=== PATIENT | male | born 1965 | race Caucasian/White ===

== ENCOUNTER 2016-08-12 17:22 | Emergency (ER) | payer OTHER ==
[~2016-08-12 17:22] MED LIST: ACET500CAP PO; ADVIL PO; ASAB PO; ASABAYER PO; ATV1 PO; CELEXA40 MG PO; CHEMOTHERAPY IV; COMP10B PO; DEX4 PO; DSS PO; GOODY'S EX-STR1 EAC1 PO; KADIANSR30 PO; KLONO1 PO; LEVAQUIN750 MG PO; LORT7 PO; MOTRIN IB200 MG PO; MULTIPLE VIT PO; MULTIVIT/MIN PO; NICODERM C21 MG/241 TOP; NITROSTAT0.4 MG SL; NORCO1 TA1 PO; NORCO1 TAB; NORV5 PO; NTG150 SL; OXYCOD PO; OXYIR5 MG PO; P20 PO; PCET PO; PROAIR HFA INH; PROTONIX PO; QVAR 80 MCG80 MCG INH; SPIRIVA INH; T PO; TESSALON200 MG PO; TRENTAL400 PO; VITE PO; XANAX1 MG PO; ZOCOR20 PO; ZOFRAN4 PO; ZOFRAN8 PO; [UNRECOGNIZED DRUG - CODE] PO
[2016-08-12 17:37] LABS: BASOPHILS 0 %; EOSINOPHILS 0 %; ER CBC TAT 0 Hrs 03 Mins; HEMOGLOBIN 14.5 g/dL (13.6-17.8); IMMATURE GRANULOCYTES 0.4 %; IMMATURE GRANULOCYTES ABSOLUTE 0.05 10/3/uL (0.0-0.11); LYMPHOCYTES 4.4 %; LYMPHOCYTES ABSOLUTE 0.57 10/3/uL (0.67-4.30); MEAN CORPUS HGB CONC 35.2 g/dL (32.0-36.0); MEAN CORPUSCULAR HEMOGLOB 34.7 pg (26.0-34.0); MEAN PLATELET VOLUME 9.4 fL (9.2-13.0); MONOCYTES 6.5 %; MONOCYTES ABSOLUTE 0.84 10/3/uL (0.21-1.20); NEUTROPHILS 88.7 %; NEUTROPHILS ABSOLUTE 11.46 10/3/uL (2.02-8.40); PLATELET COUNT 156 10/3/uL (150-400); RBC DISTRIBUTION WIDTH 14.9 % (12.0-16.0); RED CELL COUNT 4.18 10/6/uL (4.7-6.1); WHITE BLOOD CELLS 12.9 10/3/uL (4.5-10.5)
[2016-08-12 17:41] LABS: HEMATOCRIT 41.2 % (40.0-51.0); MANUAL DIFF NO %; MEAN CORPUSCULAR VOLUME 98.6 fL (80-100)
[2016-08-12 17:52] LABS: INTERNATIONAL NORMAL RATI 0.9 UNITS (-); PARTIAL THROMBO TIME 23.7 SEC (22.5-37.2); PROTIME (NOT ORD) 12.2 SEC (12.0-14.5)
[2016-08-12 17:54] LABS: BUN (BLOOD UREA NITROGEN) 21 MG/DL (6-23); CALCIUM, SERUM 8.8 MG/DL (8.5-10.4); CHEST PAIN PROFILE TAT 0 Hrs 20 Mins; CHLORIDE, SERUM 99 MMOL/L (96-112); CO2 (CARBON DIOXIDE) 23 MMOL/L (24-34); CREATININE 0.87 MG/DL (0.70-1.30); GFR AFRICAN AMERICAN 117 ML/MIN (>=60); GFR NON AFRICAN AMERICAN 101 ML/MIN (>=60); GLUCOSE, SERUM 131 MG/DL (60-99); POTASSIUM, SERUM 4.2 MMOL/L (3.5-5.3); SODIUM, SERUM 135 MMOL/L (135-148); TROPONIN I <0.02 NG/ML (<0.05)
[2017-01-14] MEDS ORDERED: OXYCOD PO ×2 (13:58→14:21)
[2017-01-14] MEDS ORDERED: SPIRIVA INH ×2 (13:58→14:21)
[2017-01-14] MEDS ORDERED: ATV1 PO ×2 (13:59→14:21)
[2017-01-14] MEDS ORDERED: NORV5 PO ×2 (13:59→14:21)
[2017-01-14] MEDS ORDERED: PROTONIX PO (14:22)
[2017-01-14] MEDS ORDERED: CELEXA40 MG PO (14:22)
[2017-01-14] MEDS ORDERED: DEX4 PO (14:22)
[2017-01-14] MEDS ORDERED: ALEVE220 MG PO (14:23)
[2017-01-14] MEDS ORDERED: ADVIL PM1 CAP PO (14:23)
[2017-01-14] MEDS ORDERED: ACET500CAP PO (14:23)
[2017-01-14] MEDS ORDERED: PROAIR HFA INH (14:24)
== END 2016-08-12 23:11 | disposition home or self-care (01) ==
LOC: ER 17:22
PROVIDERS: Emergency Medicine
DX: C34.90 Malignant neoplasm of unspecified part of unspecified bronchus or lung (principal); C79.31 Secondary malignant neoplasm of brain; J44.9 Chronic obstructive pulmonary disease, unspecified; Z88.1 Allergy status to other antibiotic agents; Z88.8 Allergy status to other drugs, medicaments and biological substances; Z79.82 Long term (current) use of aspirin; Z79.52 Long term (current) use of systemic steroids; Z79.899 Other long term (current) drug therapy
CPT/HCPCS: 70450; 71020; 80048; 83735; 84484; 85025; 85610; 85730; 93005; 94640; 99285; A9270-GY

== ENCOUNTER 2016-08-27 22:00 | Observation (INO) | payer OTHER ==
--- NOTE | ~2016-08-27 | DS ---
Discharge Summary [facility] [address] [facility] [place]. [address] NAME: JONATHAN HOANG : 67 STATUS : ADM [place]iane PAT#: [id number] AGE: 51 ADM/REG DATE : 08/27/16 MR#: [id number] REPORT SERV DATE: 08/29/16 DICTATED BY: JASON JACQUES II DATE: 08/29/16 REPORT STATUS : Draft TRANSCRIBED BY: MODL DATE: 08/29/16 ADMISSION DATE: 08/27/2016 DISCHARGE DATE: 08/29/2016 DISCHARGE DIAGNOSES: 1. Community-acquired pneumonia. 2. Metastatic non-small cell lung cancer with brain metastasis, on Decadron, followed by Dr. Houser. 3. Acute exacerbation of chronic obstructive pulmonary disease. 4. Obstructive sleep apnea. 5. Hypertension. 6. Hyperglycemia secondary to steroids. BRIEF HISTORY OF PRESENT ILLNESS: The patient is a 51-year-old male with the above history, who presented to [facility] due to chest pain and subsequently found to have pneumonia with COPD exacerbation. For detailed history and physical examination, please see Dr. Imer Cooley's note from 08/27/2016. HOSPITAL COURSE: On admission, the patient had a white count of 20. CTA of the chest showed new patchy ground-glass infiltrates in the upper lobes of both lungs, likely infectious versus inflammatory. The patient was started on azithromycin and Rocephin with subsequent decrease in his white blood cell count to 14. Jonathan has also wheezing and acute exacerbation of chronic obstructive pulmonary disease. Stress dose steroids with high-dose Solu-Medrol were initiated. The patient has subsequently improved, not on oxygen, and is feeling better. He has no further chest pain. An echocardiogram was done, which showed low normal LVEF of 50%, mild diastolic dysfunction, no wall motion abnormalities or other significant valvular dysfunction. His cardiac enzymes were all normal, and chest pain resolved. At this point, we will continue the patient on steroid taper with prednisone 60 for four more days, and then the patient will resume his Decadron b.i.d. and follow up with Dr. Houser. The patient is working on possibly getting surgery for his fairly large brain lesion. DISCHARGE MEDICATIONS: 1. Amlodipine 5 mg p.o. daily. 2. Judie Aspirin 325 mg p.o. daily. 3. Celexa 40 mg p.o. daily. 4. Prednisone 60 mg p.o. daily x4 days, then resume Decadron 4 mg p.o. b.i.d. 5. Protonix 40 mg p.o. daily. 6. Tylenol p.r.n. 7. Albuterol p.r.n. 8. Tessalon p.r.n. 9. Zofran 4 mg p.o. b.i.d. p.r.n. 10.Oxycodone 5-10 mg p.o. q.4 hours p.r.n. pain. 11.Spiriva one cap inhaled daily. 12.Omnicef 300 mg p.o. daily. 13.Glipizide 5 mg p.o. daily. Discharge Summary [address] [address] NAME: JONATHAN HOANG : 67 STATUS : ADM [place]iane PAT#: [id number] AGE: 51 ADM/REG DATE : 08/27/16 MR#: [id number] REPORT SERV DATE: 08/29/16 DICTATED BY: JASON JACQUES II DATE: 08/29/16 REPORT STATUS : Draft TRANSCRIBED BY: KAPIL DATE: 08/29/16 DISCHARGE INSTRUCTIONS: The patient will follow up with Dr. Abhi Houser in one to two weeks. ARBEN/KAPIL Jason Jacques II, MD / [id number] CC: Jason Jacques II, MD
--- NOTE | ~2016-08-27 | HP ---
History And Physical [place] [id number] [facility]. [address] NAME: JONATHAN HOANG : 67 STATUS : ADM Viviane PAT#: [id number] AGE: 51 ADM/REG DATE : 08/27/16 MR#: [id number] REPORT SERV DATE: 08/28/16 DICTATED BY: IMER THOMPSON DATE: 08/28/16 REPORT STATUS : Draft TRANSCRIBED BY: MODL DATE: 08/28/16 DATE OF ADMISSION: 08/27/2016 CHIEF COMPLAINT: Substernal chest pain. HISTORY OF PRESENT ILLNESS: This is a 51-year-old male with a history of metastatic squamous cell lung cancer, followed by Dr. Abhi Houser; COPD, current tobacco use; hypertension; obstructive sleep apnea, who presents to the emergency room at [facility] with the above-mentioned complaint. History is obtained from Mr. Hoang, his son who is at bedside, and reviewing data available on the [employer] system. According to available data, Mr. Hoang had started having some chest discomfort and shortness of breath for about two weeks now. This has been ongoing. He has been coughing up yellowish to brownish sputum, but last evening and last night, his pain increased. He felt very short of breath to the point he decided to come to the emergency room to be evaluated. Of note, Mr. Hoang and his son have no real dwelling. They are staying with some friends in hotels and motels. In the emergency room, initial workup revealed bilateral air-space disease, leukocytosis, and an exacerbation of his COPD. Hospitalist Service is asked to admit him for further evaluation and treatment. At the time of my evaluation, he denied any palpitations, but continued to have substernal chest pain. This was aggravated with some deep inspirations or coughing. No radiation of the pain. No relieving factors. He had not had any recent falls or loss of consciousness. Had no fevers or shaking chills. Denied any nausea, vomiting, or diarrhea. He has not had any recent hematemesis, hematochezia, or hematuria. No other history of recent travel or exposures other than those mentioned above. PAST MEDICAL HISTORY: Significant for history of metastatic squamous cell lung cancer, history of COPD, obstructive sleep apnea, essential hypertension. He has anxiety disorder as well. He has no known diabetes mellitus. He has had a history of pancreatitis in the past as well. SOCIAL HISTORY: He has about 50- to 27-[id number]-hnbp smoking, continues to do so. Denies alcohol use or recreational drug use. FAMILY HISTORY: Noncontributory. MEDICATIONS: His medications at home were reviewed by me in the chart today and reordered by me. REVIEW OF SYSTEMS: As in the history of present illness. All other systems were reviewed in detail and are quite unremarkable. History And Physical [address] [address] NAME: JONATHAN HOANG : 67 STATUS : ADM [place] PAT#: [id number] AGE: 51 ADM/REG DATE : 08/27/16 MR#: [id number] REPORT SERV DATE: 08/28/16 DICTATED BY: IMER THOMPSON DATE: 08/28/16 REPORT STATUS : Draft TRANSCRIBED BY: KAPIL DATE: 08/28/16 PHYSICAL EXAMINATION: GENERAL: This is a pleasant 51-year-old, not in any acute distress. HEENT: Head is atraumatic, normocephalic. He is alert, awake, and oriented to time, place, and person. Pupils are equal, reacting to light and accommodating. External ocular muscles are intact. Membranes are moist and pink. Sclerae are nonicteric. NECK: Supple with no jugular venous distention, lymphadenopathy, or thyromegaly. LUNGS: Auscultation of his lungs revealed decreased air entry bilaterally with bilateral diffuse expiratory wheezes as well. HEART: Auscultation of his heart revealed normal rate and rhythm. ABDOMEN: Soft, nontender. Bowel sounds are present. EXTREMITIES: Showed no cyanosis, clubbing, or edema. NEUROLOGIC: Grossly intact. No focal sensory or motor deficits. Higher functions appeared intact. Gait was not examined at this time. VITAL SIGNS: His vital signs today showed a temperature of 98.6, pulse 141, respirations 16 a minute, blood pressure was 124/93, oxygen saturations were 97% breathing 2 L of oxygen via nasal cannula. LABORATORY DATA: Reviewed on the [employer] system showed a pH of 7.48 on arterial blood gas done on room air, pCO2 was 31, PaO2 of 93, and bicarb was 22.0. CMP was essentially within normal limits, but blood glucose was elevated at 206 today. His previous number was 131. CBC revealed a white blood cell count of 20,300, which is up from 12,900, that was on 08/12/2016. Hemoglobin, hematocrit, and platelet count were within normal limits. Films of the CTA of his chest were reviewed by me on the PACS today and interpreted by me. Per my interpretation and reviewing the radiology report, there is no pulmonary embolism seen. There is bilateral air-space disease versus atelectasis seen in the right middle lobe and lingula. IMPRESSION: 1. Chest pain. 2. Pneumonia. 3. Leukocytosis. 4. Hyperglycemia. 5. Metastatic squamous cell lung cancer, followed by Dr. Abhi Houser. 6. Chronic obstructive pulmonary disease with acute exacerbation. 7. Obstructive sleep apnea. 8. Essential hypertension. 9. Anxiety disorder. PLAN: We will admit Mr. Hoang to the Hospitalist Service with telemetry for a 24-hour observation period. His chest pain could be probably secondary to pneumonia, but we will go ahead and follow troponin to rule out acute coronary syndrome. We will also start him on pain control with intravenous Dilaudid as needed. After cultures are obtained, we will start him on empiric IV antibiotics for community-acquired pneumonia. We will also check his procalcitonin and lactate levels. Meanwhile, we will go ahead and maximize bronchodilator treatments, continue supplemental oxygen therapy, and start him on intravenous corticosteroids as well. We will check his hemoglobin A1c and treat him with NovoLog insulin per sliding scale for control of blood sugars. We will continue all other History And Physical [address] [address] NAME: JONATHAN HOANG : 67 STATUS : ADM [place] PAT#: [id number] AGE: 51 ADM/REG DATE : 08/27/16 MR#: [id number] REPORT SERV DATE: 08/28/16 DICTATED BY: IMER THOMPSON DATE: 08/28/16 REPORT STATUS : Draft TRANSCRIBED BY: KAPIL DATE: 08/28/16 medications and treatments at this time and also notify Dr. Abhi Houser of his admission here. I have discussed the above plans with the patient and his son. Questions were answered and they are agreeable to the above recommendations. Hospitalist Service will be following him during his stay here. /KAPIL Imer Thompson M.D. / [id number] CC: Ean Bynum Jr, MD
[2016-08-27 21:32] LABS: ALLENS TEST Pos; BE (BASE EXCESS) -0.4 MEQ/L (0 +/- 2.5); CARBOXYHEMOGLOBIN 6.3 % (0-3); HEMOBLOGIN CONTENT 15.3 G/DL (14-18); INSTRUMENT SERIAL # 8087; METHEMOGLOBIN 0.2 % (0-3); O2 CONTENT 19.7 VOL% (18-24); OPERATOR ID 17589; PCO2 (CO2 TENSION) 31 MMHG (35-45); PO2 (O2 TENSION) 93 MMHG (79-93); SAMPLE Arterial; pH 7.48 (7.37-7.43)
[2016-08-27 21:46] LABS: BASOPHILS 0 %; BASOPHILS ABSOLUTE 0.01 10/3/uL (0.0-0.16); EOSINOPHILS 0 %; ER CBC TAT 0 Hrs 08 Mins; HEMATOCRIT 40.7 % (40.0-51.0); HEMOGLOBIN 14.7 g/dL (13.6-17.8); IMMATURE GRANULOCYTES 0.5 %; IMMATURE GRANULOCYTES ABSOLUTE 0.11 10/3/uL (0.0-0.11); LYMPHOCYTES ABSOLUTE 2.03 10/3/uL (0.67-4.30); MANUAL DIFF NO %; MEAN CORPUS HGB CONC 36.1 g/dL (32.0-36.0); MEAN CORPUSCULAR VOLUME 96.9 fL (80-100); MEAN PLATELET VOLUME 9.6 fL (9.2-13.0); MONOCYTES 6.7 %; MONOCYTES ABSOLUTE 1.35 10/3/uL (0.21-1.20); NEUTROPHILS 82.8 %; PLATELET COUNT 200 10/3/uL (150-400); RBC DISTRIBUTION WIDTH 13.9 % (12.0-16.0); WHITE BLOOD CELLS 20.3 10/3/uL (4.5-10.5)
[2016-08-27 21:53] LABS: INTERNATIONAL NORMAL RATI 0.9 UNITS (-); PARTIAL THROMBO TIME 23.7 SEC (22.5-37.2); PROTIME (NOT ORD) 12.3 SEC (12.0-14.5)
[2016-08-27 22:00] LABS: BUN (BLOOD UREA NITROGEN) 18 MG/DL (6-23); CALCIUM, SERUM 8.3 MG/DL (8.5-10.4); CHEST PAIN PROFILE TAT 0 Hrs 22 Mins; CHLORIDE, SERUM 99 MMOL/L (96-112); CO2 (CARBON DIOXIDE) 27 MMOL/L (24-34); CREATININE 1.18 MG/DL (0.70-1.30); GFR AFRICAN AMERICAN 83 ML/MIN (>=60); GFR NON AFRICAN AMERICAN 72 ML/MIN (>=60); GLUCOSE, SERUM 206 MG/DL (60-99); POTASSIUM, SERUM 3.9 MMOL/L (3.5-5.3); SODIUM, SERUM 135 MMOL/L (135-148); TROPONIN I <0.02 NG/ML (<0.05)
[2016-08-28] MEDS ORDERED: PROAIR HFA INH (02:12)
[2016-08-28] MEDS ORDERED: NORV5 PO (02:12)
[2016-08-28] MEDS ORDERED: T PO (02:12)
[2016-08-28] MEDS ORDERED: ASABAYER PO (02:13)
[2016-08-28] MEDS ORDERED: CELEXA40 MG PO (02:13)
[2016-08-28] MEDS ORDERED: TESSALON200 MG PO (02:13)
[2016-08-28] MEDS ORDERED: DEX4 PO (02:14)
[2016-08-28] MEDS ORDERED: OXYIR5 MG PO (02:15)
[2016-08-28] MEDS ORDERED: ZOFRAN4 PO (02:15)
[2016-08-28] MEDS ORDERED: PROTONIX PO (02:15)
[2016-08-28] MEDS ORDERED: SPIRIVA INH (02:15)
[2016-08-28 06:24] LABS: BASOPHILS 0 %; EOSINOPHILS 0 %; HEMATOCRIT 38.4 % (40.0-51.0); HEMOGLOBIN 13.3 g/dL (13.6-17.8); IMMATURE GRANULOCYTES 0.6 %; IMMATURE GRANULOCYTES ABSOLUTE 0.08 10/3/uL (0.0-0.11); LYMPHOCYTES 5.2 %; LYMPHOCYTES ABSOLUTE 0.73 10/3/uL (0.67-4.30); MEAN CORPUS HGB CONC 34.6 g/dL (32.0-36.0); MEAN CORPUSCULAR VOLUME 98.2 fL (80-100); MEAN PLATELET VOLUME 9.7 fL (9.2-13.0); MONOCYTES 2.6 %; MONOCYTES ABSOLUTE 0.36 10/3/uL (0.21-1.20); NEUTROPHILS 91.6 %; NEUTROPHILS ABSOLUTE 12.89 10/3/uL (2.02-8.40); PLATELET COUNT 169 10/3/uL (150-400); RED CELL COUNT 3.91 10/6/uL (4.7-6.1); WHITE BLOOD CELLS 14.1 10/3/uL (4.5-10.5)
[2016-08-28 06:25] LABS: MANUAL DIFF NO %
[2016-08-28 06:36] LABS: CALCIUM, SERUM 8.4 MG/DL (8.5-10.4); CHLORIDE, SERUM 99 MMOL/L (96-112); CO2 (CARBON DIOXIDE) 23 MMOL/L (24-34); CREATININE 1.04 MG/DL (0.70-1.30); GFR AFRICAN AMERICAN 97 ML/MIN (>=60); GFR NON AFRICAN AMERICAN 83 ML/MIN (>=60); GLUCOSE, SERUM 236 MG/DL (60-99); PHOSPHORUS, SERUM 3.1 MG/DL (2.5-4.5); POTASSIUM, SERUM 4.5 MMOL/L (3.5-5.3); SODIUM, SERUM 136 MMOL/L (135-148)
[2016-08-28 06:38] LABS: BUN (BLOOD UREA NITROGEN) 14 MG/DL (6-23)
[2016-08-28 07:57] LABS: PROCALCITONIN <0.05 ng/mL (<0.5)
[2016-08-29 05:36] LABS: BASOPHILS 0 %; EOSINOPHILS 0 %; HEMATOCRIT 35.6 % (40.0-51.0); HEMOGLOBIN 12.4 g/dL (13.6-17.8); IMMATURE GRANULOCYTES 0.7 %; IMMATURE GRANULOCYTES ABSOLUTE 0.11 10/3/uL (0.0-0.11); LYMPHOCYTES 5.2 %; LYMPHOCYTES ABSOLUTE 0.87 10/3/uL (0.67-4.30); MANUAL DIFF NO %; MEAN CORPUS HGB CONC 34.8 g/dL (32.0-36.0); MEAN CORPUSCULAR VOLUME 97.5 fL (80-100); MEAN PLATELET VOLUME 9.5 fL (9.2-13.0); MONOCYTES 3.9 %; MONOCYTES ABSOLUTE 0.65 10/3/uL (0.21-1.20); NEUTROPHILS 90.2 %; NEUTROPHILS ABSOLUTE 15.22 10/3/uL (2.02-8.40); PLATELET COUNT 170 10/3/uL (150-400); RBC DISTRIBUTION WIDTH 13.5 % (12.0-16.0); RED CELL COUNT 3.65 10/6/uL (4.7-6.1); WHITE BLOOD CELLS 16.9 10/3/uL (4.5-10.5)
[2016-08-29 06:08] LABS: BUN (BLOOD UREA NITROGEN) 16 MG/DL (6-23); CALCIUM, SERUM 9.2 MG/DL (8.5-10.4); CHLORIDE, SERUM 99 MMOL/L (96-112); CO2 (CARBON DIOXIDE) 26 MMOL/L (24-34); CREATININE 0.95 MG/DL (0.70-1.30); GFR AFRICAN AMERICAN 108 ML/MIN (>=60); GFR NON AFRICAN AMERICAN 93 ML/MIN (>=60); POTASSIUM, SERUM 4.1 MMOL/L (3.5-5.3); SODIUM, SERUM 135 MMOL/L (135-148)
[2016-08-29 06:10] LABS: GLUCOSE, SERUM 184 MG/DL (60-99); ULTRASENSITIVE TSH 0.199 MCIU/ML (0.358-3.740)
[2016-08-29] MEDS ORDERED: P20 PO (11:41)
[2016-08-29] MEDS ORDERED: GLUCOTROL5 PO (11:42)
[2016-08-29] MEDS ORDERED: OMNICEF300 PO (11:42)
[2017-01-14] MEDS ORDERED: OXYCOD PO ×2 (13:58→14:21)
[2017-01-14] MEDS ORDERED: SPIRIVA INH ×2 (13:58→14:21)
[2017-01-14] MEDS ORDERED: NORV5 PO ×2 (13:59→14:21)
[2017-01-14] MEDS ORDERED: ATV1 PO ×2 (13:59→14:21)
[2017-01-14] MEDS ORDERED: PROTONIX PO (14:22)
[2017-01-14] MEDS ORDERED: CELEXA40 MG PO (14:22)
[2017-01-14] MEDS ORDERED: DEX4 PO (14:22)
[2017-01-14] MEDS ORDERED: ADVIL PM1 CAP PO (14:23)
[2017-01-14] MEDS ORDERED: ALEVE220 MG PO (14:23)
[2017-01-14] MEDS ORDERED: ACET500CAP PO (14:23)
[2017-01-14] MEDS ORDERED: PROAIR HFA INH (14:24)
== END 2016-08-29 12:26 | disposition home or self-care (01) ==
LOC: ER 22:00 → CDU1 23:59
PROVIDERS: Internal Medicine; Specialist
DX: J18.9 Pneumonia, unspecified organism (principal); J44.1 Chronic obstructive pulmonary disease with (acute) exacerbation; G47.33 Obstructive sleep apnea (adult) (pediatric); I10 Essential (primary) hypertension; F41.9 Anxiety disorder, unspecified; F17.210 Nicotine dependence, cigarettes, uncomplicated; Z85.118 Personal history of other malignant neoplasm of bronchus and lung; Z79.82 Long term (current) use of aspirin; Z79.899 Other long term (current) drug therapy
CPT/HCPCS: 36600; 71010; 71275; 80048; 82150; 82805; 82962; 83036; 83605; 83735; 84100; 84145; 84443; 84484; 85025; 85610; 85730; 87040; 93005; 93306; 94640; 96365; 96366; 96372; 96375; 96376; 99285; A9270-GY; G0378; J0456; J1170; J1956; J2405; J2920; J2930; Q9967

== ENCOUNTER 2016-08-30 15:09 | Observation (INO) | payer OTHER ==
--- NOTE | ~2016-08-30 | HP ---
History And Physical [place] [address] [facility] [place]. [address] NAME: JONATHAN HOANG : 67 STATUS : ADM [place] PAT#: [id number] AGE: 51 ADM/REG DATE : 08/30/16 MR#: [id number] REPORT SERV DATE: 08/30/16 DICTATED BY: IMER THOMPSON DATE: 08/30/16 REPORT STATUS : Draft TRANSCRIBED BY: MODL DATE: 08/30/16 DATE OF ADMISSION: 08/30/2016 CHIEF COMPLAINT: Chest pain and shortness of breath. HISTORY OF PRESENT ILLNESS: This is a 51-year-old male who was recently discharged from this facility after he was treated as an inpatient for community-acquired pneumonia and COPD exacerbation on top of his metastatic non-small cell lung cancer with metastasis to the brain. He is a patient of Dr. Abhi Houser, and he was treated with IV antibiotics and steroids and discharged home to continue his therapy. Unfortunately, he reached his [facility] where he stays as he and his son have no permanent dwelling, and he started feeling short of breath and had some chest tightness as well and decided to come back to the ER. Unfortunately, after his discharge, he continued to smoke cigarettes as well. In the emergency room, initial workup revealed an elevated white blood cell count with an exacerbation of his COPD and community-acquired pneumonia, and Hospitalist Service was asked to admit him for further evaluation and treatment. At the time of my evaluation, he denied any chest tightness. He had no palpitations. He also had no orthopnea. He had a cough which was essentially nonproductive, not associated with any hemoptysis, night sweats, or weight loss. He did not have any real fevers or chills since his discharge. No nausea, vomiting, diarrhea, dysuria. No history of hematemesis, hematochezia, or hematuria. PAST MEDICAL HISTORY: Significant for history of non-small cell lung cancer with metastasis to the brain, on steroid therapy, a patient of Dr. Abhi Houser. He has a history of COPD, tobacco, essential hypertension, leukocytosis secondary to steroid use, and obstructive sleep apnea. SOCIAL HISTORY: He has about a 45-wxgg-ipmf history of smoking, continues to do so. Denies any alcohol or recreational drug use. FAMILY HISTORY: Noncontributory. MEDICATIONS: His medications at home were reviewed by me in the chart today and reordered by me. REVIEW OF SYSTEMS: As in history of present illness. All other systems were reviewed and are quite unremarkable. PHYSICAL EXAMINATION: GENERAL: This is a pleasant 51-year-old, not in any acute distress. He is alert, awake, oriented to time, place, and person. HEENT: His head is atraumatic, normocephalic. Pupils are equal, reacting to light and accommodating. External ocular muscles are intact. Membranes are moist and pink. Sclerae History And Physical [address] [address] NAME: JONATHAN HOANG : 67 STATUS : ADM [place] PAT#: [id number] AGE: 51 ADM/REG DATE : 08/30/16 MR#: [id number] REPORT SERV DATE: 08/30/16 DICTATED BY: IMER THOMPSON DATE: 08/30/16 REPORT STATUS : Draft TRANSCRIBED BY: MODL DATE: 08/30/16 are nonicteric. NECK: Supple with no jugular venous distention, lymphadenopathy, or thyromegaly. LUNGS: Auscultation of his lungs reveals bilateral diffuse expiratory wheezes. No rales. Trachea appears to be in midline. Auscultation of his heart reveals normal rate and rhythm with no murmurs, rubs, or gallops appreciated. ABDOMEN: Soft and nontender. Bowel sounds are present. There is no organomegaly. EXTREMITIES: No cyanosis, clubbing, or edema. NEUROLOGIC: Grossly intact. No focal sensory or motor deficits. Higher functions appear intact. VITAL SIGNS: His temperature today is 97.4 pulse 113, respirations 18 a minute, blood pressure 169/98, oxygen saturations 98% on 2 L of oxygen via nasal cannula. LABORATORY DATA: Reviewed on the [employer] system today showed sodium of 133, potassium 3.9, chloride 98, CO2 of 25, BUN was 25 with a creatinine of 1.11, and blood glucose was 214. His troponin today was 0.02. [place] a [place] [address], hemoglobin was 12.9, hematocrit 37.3, and platelet count was 164,000. Urinalysis was not done today. Films of the chest x-ray were reviewed by me on the PACS today and interpreted by me. Today's films were compared to prior films available on the PACS as well. Per my interpretation, compared to chest x-ray done on 08/27/2016, today's film showed complete resolution of the bilateral air-space disease seen on the earlier film. No new infiltrates or effusions. A 12-lead EKG done in the emergency room was reviewed and interpreted by me. There is sinus tachycardia at a rate of [address] elevations. IMPRESSION: 1. Community-acquired pneumonia. 2. Metastatic non-small cell lung cancer with metastatic disease to the brain. 3. Chronic obstructive pulmonary disease with acute exacerbation. 4. Essential hypertension. 5. Leukocytosis secondary to steroids. 6. Hyperglycemia secondary to steroids. 7. Chest pain secondary to his pneumonia. 8. Obstructive sleep apnea. PLAN: We will admit Mr. Hoang to the Hospitalist Service for a 24-hour observation. We will obtain cultures and start him on empiric IV antibiotics for his community-acquired pneumonia. He had responded to azithromycin and Rocephin. We will continue the same. We will start him on bronchodilator treatments, continue supplemental oxygen therapy, and place him on steroids as well. We will also place him on NovoLog insulin per sliding scale for blood sugar control which is exacerbated by his steroid therapy. He will be on unfractionated heparin for DVT prophylaxis while here. I will hold off on intravenous Dilaudid and continue the oral narcotics that he is on for pain. We will also order chemistry, CBC, and other labs for the morning, re-evaluate, and decide on a disposition. We will also get Social Work involved to evaluate his home situation. I have discussed the above plans with the patient. His questions were answered, and he is agreeable to the above recommendations. Hospitalist Service will be following him during his stay. History And Physical [address] [place]. [address] NAME: JONATHAN HOANG : 67 STATUS : ADM [place] PAT#: [id number] AGE: 51 ADM/REG DATE : 08/30/16 MR#: [id number] REPORT SERV DATE: 08/30/16 DICTATED BY: IMER THOMPSON DATE: 08/30/16 REPORT STATUS : Draft TRANSCRIBED BY: KAPIL DATE: 08/30/16 /KAPIL Imer Thompson M.D. / [id number] CC: Scottie Carrasco II, MD
--- NOTE | ~2016-08-30 | DS ---
Discharge Summary [facility] [address] [place]. [address] NAME: JONATHAN HOANG : 67 STATUS : DIS [place] PAT#: [id number] AGE: 51 ADM/REG DATE : 08/30/16 MR#: [id number] REPORT SERV DATE: 09/03/16 DICTATED BY: RADHA DESIR DATE: 09/02/16 REPORT STATUS : Draft TRANSCRIBED BY: MODL DATE: 09/02/16 ADMISSION DATE: 08/30/2016 DISCHARGE DATE: 09/02/2016 CHIEF COMPLAINT: Chest pain and shortness of breath. DISCHARGING DIAGNOSES: 1. Acute exacerbation of chronic obstructive pulmonary disease. 2. Metastatic lung cancer. 3. Chronic pain. 4. Hypertension. 5. Tobacco abuse. 6. Suspected bronchitis. HISTORY OF PRESENT ILLNESS: Please see full H and P by Dr. Cooley for details regarding initial presentation. HOSPITAL COURSE: 1. Metastatic lung cancer with known brain mets. Dr. Abhi Houser did follow along. The patient will resume Decadron after treatment with prednisone for COPD exacerbation. Dr. Abhi Houser to set up outpatient evaluation with Neurosurgery for possible surgical management of his brain metastases. 2. COPD with acute exacerbation. The patient continues to smoke. He also is living in a homeless snf for a significant period of time. Thus, this is bring on COPD exacerbations. [facility] We will discharge him with a steroid taper as well as continued Omnicef for his last admission where they thought he may have community-acquired pneumonia versus bronchitis. My suspicion is this is more likely bronchitis as he has no clear infiltrate. 3. Suspected bronchitis. Unfortunately, all cultures have remained negative. He will be treated with Omnicef as he did not fill this after last admission. 4. Chronic pain. Dr. Abhi Houser to manage this. He is concerned with improper use of medications. We will not change his chronic pain medications. 5. Hypertension, suspect acutely due to some increased steroids. He is on Norvasc. We will increase that to 10 mg daily. 6. Tobacco abuse. The patient was given nicotine patch here and counseled. DISCHARGE MEDICATIONS: Prednisone taper, Omnicef 300 mg p.o. b.i.d. for six days, Celexa 40 mg daily, glipizide 5 mg daily, pantoprazole 40 mg daily, Spiriva one capsule daily, albuterol HFA p.r.n., Tessalon p.r.n., Zofran p.r.n., oxycodone 5-10 mg every four hours p.r.n. DISPOSITION: Back to his snf. FOLLOWUP: With Dr. Abhi Houser as previously scheduled. Time spent on discharge greater than 30 minutes. Discharge Summary [address] [address] NAME: JONATHAN HOANG : 67 STATUS : DIS [place] PAT#: [id number] AGE: 51 ADM/REG DATE : 08/30/16 MR#: [id number] REPORT SERV DATE: 09/03/16 DICTATED BY: RADHA DESIR DATE: 09/02/16 REPORT STATUS : Draft TRANSCRIBED BY: KAPIL DATE: 09/02/16 KAYKAY/KAPIL Radha Desir MD / [id number] CC: Radha Desir MD
[~2016-08-30 15:09] MED LIST changes: +GLUCOTROL5 PO; +OMNICEF300 PO
[2016-08-30 15:38] LABS: BASOPHILS 0.1 %; BASOPHILS ABSOLUTE 0.01 10/3/uL (0.0-0.16); EOSINOPHILS 0.1 %; EOSINOPHILS ABSOLUTE 0.01 10/3/uL (0.0-0.53); HEMATOCRIT 37.3 % (40.0-51.0); HEMOGLOBIN 12.9 g/dL (13.6-17.8); IMMATURE GRANULOCYTES 2.4 %; IMMATURE GRANULOCYTES ABSOLUTE 0.39 10/3/uL (0.0-0.11); LYMPHOCYTES 6.8 %; LYMPHOCYTES ABSOLUTE 1.09 10/3/uL (0.67-4.30); MEAN CORPUS HGB CONC 34.6 g/dL (32.0-36.0); MEAN CORPUSCULAR HEMOGLOB 34.2 pg (26.0-34.0); MEAN CORPUSCULAR VOLUME 98.9 fL (80-100); MEAN PLATELET VOLUME 9.5 fL (9.2-13.0); MONOCYTES 6.4 %; MONOCYTES ABSOLUTE 1.03 10/3/uL (0.21-1.20); NEUTROPHILS 84.2 %; NEUTROPHILS ABSOLUTE 13.61 10/3/uL (2.02-8.40); PLATELET COUNT 164 10/3/uL (150-400); RBC DISTRIBUTION WIDTH 13.8 % (12.0-16.0); RED CELL COUNT 3.77 10/6/uL (4.7-6.1); WHITE BLOOD CELLS 16.1 10/3/uL (4.5-10.5)
[2016-08-30 15:39] LABS: MANUAL DIFF NO %
[2016-08-30 15:57] LABS: CALCIUM, SERUM 9.1 MG/DL (8.5-10.4); CHEST PAIN PROFILE TAT 0 Hrs 25 Mins; CHLORIDE, SERUM 98 MMOL/L (96-112); CO2 (CARBON DIOXIDE) 25 MMOL/L (24-34); CREATININE 1.11 MG/DL (0.70-1.30); GFR AFRICAN AMERICAN 89 ML/MIN (>=60); GFR NON AFRICAN AMERICAN 77 ML/MIN (>=60); GLUCOSE, SERUM 214 MG/DL (60-99); POTASSIUM, SERUM 3.9 MMOL/L (3.5-5.3); SODIUM, SERUM 133 MMOL/L (135-148); TROPONIN I 0.02 NG/ML (<0.05)
[2016-08-30 16:00] LABS: BUN (BLOOD UREA NITROGEN) 25 MG/DL (6-23)
[2016-08-30 16:13] LABS: PARTIAL THROMBO TIME 22.8 SEC (22.5-37.2); PROTIME (NOT ORD) 12.1 SEC (12.0-14.5)
[2016-08-30 16:14] LABS: INTERNATIONAL NORMAL RATI 0.9 UNITS (-)
[2016-08-31 05:08] LABS: BASOPHILS 0.1 %; BASOPHILS ABSOLUTE 0.01 10/3/uL (0.0-0.16); EOSINOPHILS 0 %; HEMATOCRIT 35.7 % (40.0-51.0); HEMOGLOBIN 12.5 g/dL (13.6-17.8); IMMATURE GRANULOCYTES 1.4 %; IMMATURE GRANULOCYTES ABSOLUTE 0.14 10/3/uL (0.0-0.11); LYMPHOCYTES 7.6 %; LYMPHOCYTES ABSOLUTE 0.78 10/3/uL (0.67-4.30); MEAN CORPUSCULAR HEMOGLOB 33.9 pg (26.0-34.0); MEAN CORPUSCULAR VOLUME 96.7 fL (80-100); MONOCYTES 3.4 %; MONOCYTES ABSOLUTE 0.35 10/3/uL (0.21-1.20); NEUTROPHILS 87.5 %; NEUTROPHILS ABSOLUTE 9.03 10/3/uL (2.02-8.40); PLATELET COUNT 146 10/3/uL (150-400); RBC DISTRIBUTION WIDTH 13.6 % (12.0-16.0); RED CELL COUNT 3.69 10/6/uL (4.7-6.1); WHITE BLOOD CELLS 10.3 10/3/uL (4.5-10.5)
[2016-08-31 05:24] LABS: MANUAL DIFF NO %
[2016-08-31 05:26] LABS: PHOSPHORUS, SERUM 3.4 MG/DL (2.5-4.5)
[2016-09-01 05:20] LABS: BASOPHILS 0 %; EOSINOPHILS 0 %; HEMATOCRIT 35.8 % (40.0-51.0); HEMOGLOBIN 12.7 g/dL (13.6-17.8); IMMATURE GRANULOCYTES 1.9 %; IMMATURE GRANULOCYTES ABSOLUTE 0.22 10/3/uL (0.0-0.11); LYMPHOCYTES 7.8 %; LYMPHOCYTES ABSOLUTE 0.89 10/3/uL (0.67-4.30); MEAN CORPUS HGB CONC 35.5 g/dL (32.0-36.0); MEAN CORPUSCULAR VOLUME 95.7 fL (80-100); MEAN PLATELET VOLUME 9.1 fL (9.2-13.0); MONOCYTES 4.1 %; MONOCYTES ABSOLUTE 0.47 10/3/uL (0.21-1.20); NEUTROPHILS 86.2 %; NEUTROPHILS ABSOLUTE 9.76 10/3/uL (2.02-8.40); PLATELET COUNT 153 10/3/uL (150-400); RBC DISTRIBUTION WIDTH 13.1 % (12.0-16.0); RED CELL COUNT 3.74 10/6/uL (4.7-6.1); WHITE BLOOD CELLS 11.3 10/3/uL (4.5-10.5)
[2016-09-01 05:21] LABS: MANUAL DIFF NO %
[2016-09-02 07:29] LABS: BASOPHILS 0.1 %; BASOPHILS ABSOLUTE 0.01 10/3/uL (0.0-0.16); EOSINOPHILS 0 %; HEMATOCRIT 38.5 % (40.0-51.0); HEMOGLOBIN 13.7 g/dL (13.6-17.8); IMMATURE GRANULOCYTES 1.6 %; IMMATURE GRANULOCYTES ABSOLUTE 0.23 10/3/uL (0.0-0.11); LYMPHOCYTES 6.5 %; LYMPHOCYTES ABSOLUTE 0.91 10/3/uL (0.67-4.30); MEAN CORPUS HGB CONC 35.6 g/dL (32.0-36.0); MEAN CORPUSCULAR VOLUME 95.5 fL (80-100); MEAN PLATELET VOLUME 9.2 fL (9.2-13.0); MONOCYTES 4.6 %; MONOCYTES ABSOLUTE 0.64 10/3/uL (0.21-1.20); NEUTROPHILS 87.2 %; NEUTROPHILS ABSOLUTE 12.15 10/3/uL (2.02-8.40); PLATELET COUNT 146 10/3/uL (150-400); RBC DISTRIBUTION WIDTH 13.3 % (12.0-16.0); RED CELL COUNT 4.03 10/6/uL (4.7-6.1); WHITE BLOOD CELLS 13.9 10/3/uL (4.5-10.5)
[2016-09-02 07:40] LABS: MANUAL DIFF NO %
[2016-09-02] MEDS ORDERED: NORV10 PO (11:47)
[2016-09-02] MEDS ORDERED: HABIT21 TOP (11:51)
[2016-09-02] MEDS ORDERED: OXYCOD PO (11:53)
[2016-09-02] MEDS ORDERED: ZOFRAN ODT4 MG PO (11:54)
[2016-09-02] MEDS ORDERED: PROVHFA INH (11:54)
[2016-09-02] MEDS ORDERED: SPIRIVA INH (11:55)
[2016-09-02] MEDS ORDERED: PROTONIX PO (11:55)
[2016-09-02] MEDS ORDERED: STERAPRED DS10 MG PO (12:01)
[2017-01-14] MEDS ORDERED: SPIRIVA INH ×2 (13:58→14:21)
[2017-01-14] MEDS ORDERED: OXYCOD PO ×2 (13:58→14:21)
[2017-01-14] MEDS ORDERED: ATV1 PO ×2 (13:59→14:21)
[2017-01-14] MEDS ORDERED: NORV5 PO ×2 (13:59→14:21)
[2017-01-14] MEDS ORDERED: CELEXA40 MG PO (14:22)
[2017-01-14] MEDS ORDERED: PROTONIX PO (14:22)
[2017-01-14] MEDS ORDERED: DEX4 PO (14:22)
[2017-01-14] MEDS ORDERED: ADVIL PM1 CAP PO (14:23)
[2017-01-14] MEDS ORDERED: ALEVE220 MG PO (14:23)
[2017-01-14] MEDS ORDERED: ACET500CAP PO (14:23)
[2017-01-14] MEDS ORDERED: PROAIR HFA INH (14:24)
== END 2016-09-02 14:53 | disposition home or self-care (01) ==
LOC: ER 15:09 → 4EA 20:25
PROVIDERS: Emergency Medicine; Internal Medicine; Internal Medicine Pulmonary Disease
DX: J44.1 Chronic obstructive pulmonary disease with (acute) exacerbation (principal); J18.9 Pneumonia, unspecified organism; I10 Essential (primary) hypertension; G47.33 Obstructive sleep apnea (adult) (pediatric); D72.829 Elevated white blood cell count, unspecified; F17.210 Nicotine dependence, cigarettes, uncomplicated; R73.9 Hyperglycemia, unspecified; G89.29 Other chronic pain; Z85.118 Personal history of other malignant neoplasm of bronchus and lung; Z79.899 Other long term (current) drug therapy
CPT/HCPCS: 71020; 80048; 82962; 83735; 84100; 84145; 84484; 85025; 85610; 85730; 87040; 87070; 87205; 87449; 96365; 96372; 96375; 96376; 99285; A9270-GY; G0378; J0360; J0456; J2405; J2930

== ENCOUNTER 2016-09-05 19:55 | Inpatient (IN) | payer OTHER ==
--- NOTE | ~2016-09-05 | DS ---
Discharge Summary [facility] [address] [facility] [place]. [address] NAME: JONATHAN HOANG : 67 STATUS : DIS IN PAT#: [id number] AGE: 51 ADM/REG DATE : 09/06/16 MR#: [id number] REPORT SERV DATE: 09/09/16 DICTATED BY: DATE: REPORT STATUS : Draft TRANSCRIBED BY: MODL DATE: 09/08/16 ADMISSION DATE: 09/06/2016 DISCHARGE DATE: 09/08/2016 DISCHARGE DIAGNOSES: 1. Chronic headache/brain metastases with edema. 2. Metastatic squamous cell carcinoma of the lung. 3. Chronic obstructive pulmonary disease, chronic. 4. Mild hyponatremia. 5. Hypertension, chronic. 6. Tobacco abuse. 7. Hyperglycemia. 8. Dysuria, acute. 9. Homelessness. CONSULTATIONS: Abhi Houser M.D., [facility]. PERTINENT TESTS AND PROCEDURES: 1. CT of the brain without contrast, 09/05/2016. Impression:. a. Increasing severity of vasogenic edema surrounding the poorly defined metastatic lesions in the right occipital lobe, better seen on prior MRI. Vasogenic edema extending from the right occipital lobe into the right temporoparietal and posterior frontal lobe deep white matter regions. This is resulting in increase in the mid shift of midline structures to the left of midline, now measuring 6 mm at the level of the frontal horns. b. No other acute intracranial pathology. c. Left greater than right maxillary sinus disease with small fluid meniscus suggesting some degree of acute sinus disease. 2. Chest x-ray, 09/05/2016. Impression: No acute cardiopulmonary process identified. 3. MRI of brain with and without contrast, 09/07/2016. Impression: Edema and mass effect or similar to recent CT with 5 mm of midline shift right to left and trapping of the right lateral ventricular temporal horn. Mass is larger than last MRI dated 10/23/2015 and the vasogenic edema is increased from that time. No new lesion is demonstrated in the brain parenchyma. CHIEF COMPLAINT UPON ADMISSION: Headache and confusion. HOSPITAL COURSE: Please refer to history and physical dated 09/06/[address] Bigg Castro for complete details pertaining to the patient's initial presentation upon admission and health history. Briefly, the patient is a 51-year-old male with known metastatic squamous cell carcinoma of the lung with brain metastases and chronic brain edema. The patient is followed by Dr. Abhi Houser, oncologist. The patient has a past medical history to include COPD, benign prostatic hypertrophy, Discharge Summary [address] [address] NAME: JONATHAN HOANG : 67 STATUS : DIS IN PAT#: [id number] AGE: 51 ADM/REG DATE : 09/06/16 MR#: [id number] REPORT SERV DATE: 09/09/16 DICTATED BY: DATE: REPORT STATUS : Draft TRANSCRIBED BY: MODL DATE: 09/08/16 obstructive sleep apnea without CPAP, pancreatitis, chronic pain management, anxiety and panic attacks, coronary artery disease, postobstructive pneumonia, right inguinal hernia followed chronically, elevated cholesterol, and hypertension. The patient presented to the emergency department on 09/06/2016 complaining of progressively worsening headache, rated 10/10 in severity. The patient also describes confusion, blurring of vision, nausea with episodes of vomiting. The patient is on scheduled dosing of prednisone for brain metastases and chronic brain edema; however, at the time of admission, the patient was unclear as to adherence to this medication therapy. Initial diagnostic workup included CT of the brain which reported vasogenic edema increasing in the right occipital lobe extending into the parietal and frontal lobe with a 6 mm shift that is increased. The patient was admitted for further evaluation and treatment to include IV Decadron and IV narcotic pain management. 1. Chronic headache/brain metastasis with edema. Dr. Abhi Houser, [facility], consulted Dr. Gracia, neurosurgeon at [place], regarding the patient's brain metastases with edema. The patient is now scheduled for resection planned for 09/09/2016 at [facility]. The patient will be transferred to [place] today once bed is available. Continue dexamethasone 4 mg IV every 6 hours for now. 2. Metastatic squamous cell carcinoma of the lung. Per review of [facility] progress note dated 08/19/2016, the patient has completed four 4 cycles RISSA-298 carboplatin/Abraxane and is now off treatment. Images have been stable. Upon progression, he will begin Atezolizumab. 3. Chronic COPD. The patient has a recent history of acute exacerbation during last admission, 08/30/2016. No acute signs or symptoms of exacerbation during this admission. Continue nebulizers and inhalers. 4. Hyponatremia, mild. No intervention indicated. 5. Chronic hypertension. Systolic blood pressure is slightly elevated in the 160 secondary to IV dexamethasone. Continue amlodipine. 6. Chronic tobacco abuse. The patient is still actively smoking despite tobacco cessation education. Nicotine transdermal 21 mg topical patch daily if the patient agrees to stop smoking. 7. Hyperglycemia. This is secondary to steroid. Continue glipizide 5 mg p.o. daily. Hold on morning of surgery. Initiate sliding scale insulin level 2 with NovoLog a.c. and h.s. The patient may benefit from low dose of long-acting insulin if there is plan for continued long-term steroid therapy. 8. Acute dysuria. The patient complained of mild burning and pressure associated with urination that started today. Urinalysis and reflex culture are pending. 9. Homelessness. The patient will transfer to [facility]. Case Management will need to be consulted to assist with discharge planning. DISCHARGE CONDITION: At the time of discharge, the patient is hemodynamically stable. DISCHARGE DIET: Regular diet as tolerated. Discharge Summary [address] [id number] [place]. [address] NAME: JONATHAN HOANG : 67 STATUS : DIS IN PAT#: [id number] AGE: 51 ADM/REG DATE : 09/06/16 MR#: [id number] REPORT SERV DATE: 09/09/16 DICTATED BY: DATE: REPORT STATUS : Draft TRANSCRIBED BY: KAPIL DATE: 09/08/16 DISCHARGE MEDICATIONS: 1. Amlodipine 10 mg tablet p.o. daily. 2. Celexa 40 mg tablet p.o. daily. 3. Decadron 4 mg IV every 6 hours. 4. Glipizide 5 mg tablet before breakfast. Hold on morning of scheduled surgery. 5. Habitrol 21 mg transdermal patch apply topically daily. 6. Protonix 40 mg p.o. before breakfast. 7. Xopenex 1.25 mg/0.5 mL four times daily. 8. Tylenol 325 mg tablet, take 650 mg every 4 hours as needed. 9. Tessalon 100 mg tablet, take 200 mg p.o. three times daily as needed. 10.Colace 100 mg tablet p.o. twice daily as needed. 11.Dilaudid 0.5 mg to 1 mg IV every 2 hours for moderate to severe pain. Hold for sedation. 12.Nitroglycerin 0.4 mg sublingual tablet as needed for chest pain. 13.Zofran 4 mg p.o./sublingual every 4 hours as needed. 14.Zofran 4 mg to 8 mg IV every 4 hours as needed. 15.Roxicodone 5 mg tablet, take one to two tabs 5 mg to 10 mg p.o. every 4 hours as needed. Hold for sedation. 16.Albuterol inhaler two puffs inhale every 4 hours as needed. 17.Sliding scale insulin NovoLog level 2 a.c. and h.s. DISCHARGE INSTRUCTIONS: 1. The patient is to transfer to [facility] for further evaluation and treatment of metastatic brain disease with edema. 2. Follow up with Dr. Abhi Houser at [facility]. 3. All additional disposition instructions will be completed per [facility]. PRIMARY ONCOLOGIST: Abhi Houser M.D., [facility]. JWH/JAMESL Chica Villafuerte NP-[facility] / [id number] CC: Scottie Carrasco II, MD
--- NOTE | ~2016-09-05 | HP ---
History And Physical [place] [address] [facility] [place]. [address] NAME: JONATHAN HOANG : 67 STATUS : ADM IN PAT#: [id number] AGE: 51 ADM/REG DATE : 09/06/16 MR#: [id number] REPORT SERV DATE: 09/06/16 DICTATED BY: EMILIA HOYT DATE: 09/06/16 REPORT STATUS : Draft TRANSCRIBED BY: MODL DATE: 09/06/16 DATE OF ADMISSION: 09/06/2016 CHIEF COMPLAINT: A 51-year-old male presenting with headache and confusion. HISTORY OF PRESENT ILLNESS: The patient's history was obtained through careful interview with the patient, coupled with review of [facility] medical records. The patient has known metastatic squamous cell carcinoma of the lung with brain metastases and chronic brain edema. He is on scheduled dosing of prednisone for this condition, followed by Dr. Abhi Houser, oncologist. Recently, he has been having continued problems with homelessness, and apparently, he just had to check out of a motel recently and has been living intermittently in his truck. He states that he tries to remember to take his prednisone every day and it is not certain if sometimes he misses doses, but now he has developed a progressively worsening headache, felt diffusely, aching quality, 10/10 in severity, that is unbearable. He describes confusion, blurring of his vision, nausea, episodes of vomiting. There is no hemiparesis. No dysarthria. No double vision. No falls. He describes chronic shortness of breath with dyspnea on exertion and cough productive of yellowish sputum. He tried to quit smoking for while, but has resumed smoking once again. Does not drink any alcohol. He has had chills, but no fevers. REVIEW OF SYSTEMS: Otherwise, a 14-point review of systems was obtained and was negative. PAST MEDICAL HISTORY: 1. COPD. 2. Benign prostatic hypertrophy. 3. Lung cancer, squamous cell carcinoma, status post chemotherapy and radiation and history of brain metastases, on chronic steroids. 4. Right parieto-occipital brain mass with edema, followed by Dr. Abhi Houser. 5. Obstructive sleep apnea, but not on CPAP. 6. Pancreatitis. 7. Chronic pain management. 8. Anxiety and panic attacks. 9. Coronary artery disease. 10.Postobstructive pneumonia. 11.Right inguinal hernia, followed chronically. 12.Elevated cholesterol. 13.Hypertension. History And Physical [address] [place]. [address] NAME: JONATHAN HOANG : 67 STATUS : ADM IN PAT#: [id number] AGE: 51 ADM/REG DATE : 09/06/16 MR#: [id number] REPORT SERV DATE: 09/06/16 DICTATED BY: EMILIA HOYT DATE: 09/06/16 REPORT STATUS : Draft TRANSCRIBED BY: KAPIL DATE: 09/06/16 PAST SURGICAL HISTORY: Right knee surgery. ALLERGIES: PENICILLIN AND ALBUTEROL. SOCIAL HISTORY: Quit smoking. Drinks about two beers a day. He is homeless, lives often in a truck or a motel. with three children. History marijuana use. He is disabled. FAMILY HISTORY: Father with lung cancer and prostate cancer. Mother with diabetes. Strong family history of heart disease. CURRENT MEDICATIONS: Include albuterol inhaler, Tylenol, Norvasc 10 mg p.o. daily, Tessalon Perles, Omnicef ?, Celexa 40 mg p.o. daily, glipizide 5 mg p.o. daily, nicotine patch, Zofran, Roxicodone 5/10 mg every four hours p.r.n., Protonix 40 mg p.o. daily, prednisone 10 mg p.o. daily, and Spiriva inhaled daily. PHYSICAL EXAMINATION: VITAL SIGNS: Temperature 97.9, pulse 112, blood pressure 126/96, respiratory rate 17, and O2 saturation 95% on room air. GENERAL: An ill-appearing male, in evidence of described distress secondary to headache and nausea. HEENT: Pupils are equal, round, and reactive to light. No conjunctival pallor. No scleral icterus. Nares are patent. Oropharynx is clear of obstruction. Moist mucous membranes. NECK: Trachea midline. No thyromegaly. LYMPH: No cervical lymphadenopathy. No supraclavicular lymphadenopathy. NEUROLOGICAL: Cranial nerves II through XII are intact and symmetrical. The patient has 5/5 strength in upper and lower extremities that is symmetrical. RESPIRATORY: Clear to auscultation at bases. Scattered rhonchi and scattered mild wheezes. No labored respiratory effort. CARDIOVASCULAR: Tachycardic. Regular rhythm. No murmurs, rubs, or gallops. No extremity edema is appreciated. ABDOMEN: Soft, nontender, and nondistended. Normal bowel sounds auscultated throughout. No hepatosplenomegaly. DERMATOLOGICAL: Warm and dry extremities. No pallor. No cyanosis. PSYCHIATRIC: Normal affect. Good mood. Alert and oriented x3. LABORATORY DATA: White blood cell count 8.5, hemoglobin 13.8, hematocrit 39.4, and platelets 113. Sodium 138, potassium 2.7, chloride 107, bicarb 29, BUN 19, creatinine 0.93, and glucose 128. INR 1.0. Troponin negative. STUDIES: 1. Chest x-ray by my own evaluation shows no acute cardiopulmonary process. 2. EKG by my own evaluation shows sinus tachycardia. 3. CT scan of the brain shows vasogenic edema increasing in the right occipital lobe, extending into the parietal and frontal lobe with a 6 mm shift that is increased. ASSESSMENT AND PLAN: History And Physical [address] [address] NAME: JONATHAN HOANG : 67 STATUS : ADM IN [facility]#: [id number] AGE: 51 ADM/REG DATE : 09/06/16 MR#: [id number] REPORT SERV DATE: 09/06/16 DICTATED BY: EMILIA OHYT DATE: 09/06/16 REPORT STATUS : Draft TRANSCRIBED BY: KAPIL DATE: 09/06/16 1. Brain metastases with edema. Discussed with neurologist, Dr. Piper. Will place on IV Decadron. Consult Oncology, possibility of needing radiation? Place on IV narcotic pain management. 2. Metastatic squamous cell carcinoma of the lung. 3. Chronic obstructive pulmonary disease. Place on DuoNeb nebulizers. 4. Homelessness. 5. Hypokalemia. Replace potassium. Check magnesium. KPL/MODL Emilia Hoyt M.D. / [id number] CC: Alonso Wiggins M.D.
[~2016-09-05 19:55] MED LIST changes: +HABIT21 TOP; +NORV10 PO; +PROVHFA INH; +STERAPRED DS10 MG PO; +ZOFRAN ODT4 MG PO
[2016-09-05 22:32] LABS: BASOPHILS 0 %; EOSINOPHILS 0 %; HEMATOCRIT 39.4 % (40.0-51.0); HEMOGLOBIN 13.8 g/dL (13.6-17.8); IMMATURE GRANULOCYTES 0.4 %; IMMATURE GRANULOCYTES ABSOLUTE 0.03 10/3/uL (0.0-0.11); LYMPHOCYTES 9.3 %; LYMPHOCYTES ABSOLUTE 0.79 10/3/uL (0.67-4.30); MEAN CORPUSCULAR HEMOGLOB 34.2 pg (26.0-34.0); MEAN CORPUSCULAR VOLUME 97.8 fL (80-100); MEAN PLATELET VOLUME 9.4 fL (9.2-13.0); MONOCYTES 6.3 %; MONOCYTES ABSOLUTE 0.53 10/3/uL (0.21-1.20); PLATELET COUNT 113 10/3/uL (150-400); RBC DISTRIBUTION WIDTH 13.5 % (12.0-16.0); RED CELL COUNT 4.03 10/6/uL (4.7-6.1); WHITE BLOOD CELLS 8.5 10/3/uL (4.5-10.5)
[2016-09-05 22:33] LABS: MANUAL DIFF NO %
[2016-09-05 22:48] LABS: BUN (BLOOD UREA NITROGEN) 19 MG/DL (6-23); CALCIUM, SERUM 8.5 MG/DL (8.5-10.4); CHEST PAIN PROFILE TAT 0 Hrs 20 Mins; CHLORIDE, SERUM 102 MMOL/L (96-112); CO2 (CARBON DIOXIDE) 29 MMOL/L (24-34); CREATININE 0.93 MG/DL (0.70-1.30); GFR AFRICAN AMERICAN 111 ML/MIN (>=60); GFR NON AFRICAN AMERICAN 95 ML/MIN (>=60); GLUCOSE, SERUM 128 MG/DL (60-99); POTASSIUM, SERUM 2.7 MMOL/L (3.5-5.3); SODIUM, SERUM 138 MMOL/L (135-148); TROPONIN I <0.02 NG/ML (<0.05)
[2016-09-05 22:52] LABS: PARTIAL THROMBO TIME 24.8 SEC (22.5-37.2); PROTIME (NOT ORD) 13.2 SEC (12.0-14.5)
[2016-09-06 05:10] LABS: A/G RATIO 0.9 (0.7-1.9); ALKALINE PHOSPHATASE 49 U/L (45-117); BUN (BLOOD UREA NITROGEN) 20 MG/DL (6-23); CALCIUM, SERUM 9.1 MG/DL (8.5-10.4); CHLORIDE, SERUM 100 MMOL/L (96-112); CO2 (CARBON DIOXIDE) 28 MMOL/L (24-34); CREATININE 0.96 MG/DL (0.70-1.30); GFR AFRICAN AMERICAN 106 ML/MIN (>=60); GFR NON AFRICAN AMERICAN 92 ML/MIN (>=60); GLOBULIN 3.4 G/DL (2.5-4.1); SGOT(AST) 16 U/L (5-40); SGPT(ALT) 75 U/L (5-65); SODIUM, SERUM 136 MMOL/L (135-148); TOTAL BILIRUBIN 0.7 MG/DL (0-1.2); TOTAL PROTEIN 6.4 G/DL (6.0-8.5)
[2016-09-06 05:17] LABS: GLUCOSE, SERUM 199 MG/DL (60-99); POTASSIUM, SERUM 3.6 MMOL/L (3.5-5.3)
[2016-09-07 04:57] LABS: BUN (BLOOD UREA NITROGEN) 17 MG/DL (6-23); CALCIUM, SERUM 9.4 MG/DL (8.5-10.4); CHLORIDE, SERUM 100 MMOL/L (96-112); CO2 (CARBON DIOXIDE) 28 MMOL/L (24-34); CREATININE 0.84 MG/DL (0.70-1.30); GFR AFRICAN AMERICAN 118 ML/MIN (>=60); GFR NON AFRICAN AMERICAN 102 ML/MIN (>=60); GLUCOSE, SERUM 224 MG/DL (60-99); POTASSIUM, SERUM 3.6 MMOL/L (3.5-5.3); SODIUM, SERUM 136 MMOL/L (135-148)
[2016-09-08 04:09] LABS: BUN (BLOOD UREA NITROGEN) 19 MG/DL (6-23); CALCIUM, SERUM 8.9 MG/DL (8.5-10.4); CHLORIDE, SERUM 99 MMOL/L (96-112); CO2 (CARBON DIOXIDE) 25 MMOL/L (24-34); GFR AFRICAN AMERICAN 121 ML/MIN (>=60); GFR NON AFRICAN AMERICAN 104 ML/MIN (>=60); GLUCOSE, SERUM 190 MG/DL (60-99); POTASSIUM, SERUM 4.3 MMOL/L (3.5-5.3); SODIUM, SERUM 133 MMOL/L (135-148)
[2016-09-08 17:15] LABS: ASCORBIC ACID (UR NOT ORDER) NEG (NEG); BILIRUBIN, URINE NEGATIVE (NEG); KETONE, URINE TRACE MG/DL (NEG); LEUKOCYTE ESTERASE(NOT OR NEG (NEG); WBC (NOT ORDERED) (RFLEX) 1 (0-5)
[2017-01-14] MEDS ORDERED: SPIRIVA INH ×2 (13:58→14:21)
[2017-01-14] MEDS ORDERED: OXYCOD PO ×2 (13:58→14:21)
[2017-01-14] MEDS ORDERED: NORV5 PO ×2 (13:59→14:21)
[2017-01-14] MEDS ORDERED: ATV1 PO ×2 (13:59→14:21)
[2017-01-14] MEDS ORDERED: CELEXA40 MG PO (14:22)
[2017-01-14] MEDS ORDERED: DEX4 PO (14:22)
[2017-01-14] MEDS ORDERED: PROTONIX PO (14:22)
[2017-01-14] MEDS ORDERED: ADVIL PM1 CAP PO (14:23)
[2017-01-14] MEDS ORDERED: ALEVE220 MG PO (14:23)
[2017-01-14] MEDS ORDERED: ACET500CAP PO (14:23)
[2017-01-14] MEDS ORDERED: PROAIR HFA INH (14:24)
== END 2016-09-08 20:09 | disposition short-term general hospital (02) | DRG 54 ==
LOC: ER 19:55 → 2SO 09-06 00:51 → 4EA 09-06 19:43
PROVIDERS: Emergency Medicine; Internal Medicine; Nurse Practitioner Adult Health; Nurse Practitioner Family
DX: C79.31 Secondary malignant neoplasm of brain (principal); G93.6 Cerebral edema; C34.90 Malignant neoplasm of unspecified part of unspecified bronchus or lung; E87.1 Hypo-osmolality and hyponatremia; J44.9 Chronic obstructive pulmonary disease, unspecified; I10 Essential (primary) hypertension; F17.210 Nicotine dependence, cigarettes, uncomplicated; Z59.0 Homelessness
CPT/HCPCS: 70450; 70553; 71010; 80048; 80053; 81001; 82962; 83735; 84132; 84443; 84484; 85025; 85610; 85730; 93005; 94640; 99285; A9270-GY; A9577; J1170

== ENCOUNTER 2016-10-09 23:45 | Emergency (ER) | payer OTHER ==
[2016-10-10 00:38] LABS: BASOPHILS 0.1 %; BASOPHILS ABSOLUTE 0.01 10/3/uL (0.0-0.16); EOSINOPHILS 0.1 %; EOSINOPHILS ABSOLUTE 0.01 10/3/uL (0.0-0.53); ER CBC TAT 0 Hrs 00 Mins; HEMOGLOBIN 11.3 g/dL (13.6-17.8); IMMATURE GRANULOCYTES 0.7 %; IMMATURE GRANULOCYTES ABSOLUTE 0.05 10/3/uL (0.0-0.11); LYMPHOCYTES 14.9 %; LYMPHOCYTES ABSOLUTE 1.13 10/3/uL (0.67-4.30); MEAN CORPUSCULAR HEMOGLOB 33.9 pg (26.0-34.0); MONOCYTES 4.1 %; MONOCYTES ABSOLUTE 0.31 10/3/uL (0.21-1.20); NEUTROPHILS 80.1 %; NEUTROPHILS ABSOLUTE 6.09 10/3/uL (2.02-8.40); NUCLEATED RED BLOOD CELLS 0.4 /100WBC (0-0); PLATELET COUNT 106 10/3/uL (150-400); RED CELL COUNT 3.33 10/6/uL (4.7-6.1); WHITE BLOOD CELLS 7.6 10/3/uL (4.5-10.5)
[2016-10-10 00:40] LABS: HEMATOCRIT 32.3 % (40.0-51.0); MANUAL DIFF NO %
[2016-10-10 00:54] LABS: ALBUMIN 2.8 G/DL (3.5-5.0); CALCIUM, SERUM 8.3 MG/DL (8.5-10.4); CHLORIDE, SERUM 106 MMOL/L (96-112); CO2 (CARBON DIOXIDE) 25 MMOL/L (24-34); CPK (IF ELEVATED MB BANDS) 14 U/L (0-200); CREATININE 0.75 MG/DL (0.70-1.30); GFR AFRICAN AMERICAN 124 ML/MIN (>=60); GFR NON AFRICAN AMERICAN 107 ML/MIN (>=60); GLUCOSE, SERUM 219 MG/DL (60-99); POTASSIUM, SERUM 3.5 MMOL/L (3.5-5.3); SGOT(AST) 17 U/L (5-40); SGPT(ALT) 74 U/L (5-65); TOTAL BILIRUBIN 0.4 MG/DL (0-1.2); TOTAL PROTEIN 5.5 G/DL (6.0-8.5)
[2016-10-10 00:56] LABS: ALKALINE PHOSPHATASE 62 U/L (45-117); BUN (BLOOD UREA NITROGEN) 10 MG/DL (6-23); GLOBULIN 2.7 G/DL (2.5-4.1); SODIUM, SERUM 141 MMOL/L (135-148)
[2016-10-10 02:54] LABS: ASCORBIC ACID (UR NOT ORDER) NEG (NEG); BILIRUBIN, URINE NEGATIVE (NEG); ER URINALYSIS TAT 0 Hrs 00 Mins; KETONE, URINE NEGATIVE (NEG); LEUKOCYTE ESTERASE(NOT OR LARGE (NEG); NITRITE (URINE) NEG (NEG); WBC (NOT ORDERED) (RFLEX) 22 (0-5)
[2017-01-14] MEDS ORDERED: SPIRIVA INH ×2 (13:58→14:21)
[2017-01-14] MEDS ORDERED: OXYCOD PO ×2 (13:58→14:21)
[2017-01-14] MEDS ORDERED: NORV5 PO ×2 (13:59→14:21)
[2017-01-14] MEDS ORDERED: ATV1 PO ×2 (13:59→14:21)
[2017-01-14] MEDS ORDERED: PROTONIX PO (14:22)
[2017-01-14] MEDS ORDERED: DEX4 PO (14:22)
[2017-01-14] MEDS ORDERED: CELEXA40 MG PO (14:22)
[2017-01-14] MEDS ORDERED: ALEVE220 MG PO (14:23)
[2017-01-14] MEDS ORDERED: ACET500CAP PO (14:23)
[2017-01-14] MEDS ORDERED: ADVIL PM1 CAP PO (14:23)
[2017-01-14] MEDS ORDERED: PROAIR HFA INH (14:24)
== END 2016-10-10 03:25 | disposition home or self-care (01) ==
LOC: ER 23:45
PROVIDERS: Nurse Practitioner
DX: M79.604 Pain in right leg (principal); M79.605 Pain in left leg; G89.29 Other chronic pain; C34.90 Malignant neoplasm of unspecified part of unspecified bronchus or lung; R73.9 Hyperglycemia, unspecified; J44.9 Chronic obstructive pulmonary disease, unspecified; G47.30 Sleep apnea, unspecified; Z87.01 Personal history of pneumonia (recurrent); I10 Essential (primary) hypertension; F17.200 Nicotine dependence, unspecified, uncomplicated; F41.9 Anxiety disorder, unspecified; E78.00 Pure hypercholesterolemia, unspecified; Z88.1 Allergy status to other antibiotic agents; Z88.8 Allergy status to other drugs, medicaments and biological substances; Z79.891 Long term (current) use of opiate analgesic; Z79.52 Long term (current) use of systemic steroids; Z79.899 Other long term (current) drug therapy
CPT/HCPCS: 80053; 81001; 82550; 85025; 87077; 87086; 87186; 99283; A9270-GY